=== PATIENT | male | born 1965 | race African-American/Black ===

== ENCOUNTER 2017-11-11 22:10 | Emergency (ER) | payer OTHER, MEDICAID ==
[~2017-11-11] VITALS: Ht 170.2 cm; Wt 81.0 kg
[2017-11-11 22:16] VITALS: BP 121/76
== END 2017-11-12 00:30 | disposition left against medical advice (07) ==
LOC: ER 22:10
DX: R42 Dizziness and giddiness (principal); Z53.21 Procedure and treatment not carried out due to patient leaving prior to being seen by health care provider

== ENCOUNTER 2017-11-12 07:58 | Emergency (ER) | payer OTHER, MEDICAID ==
[~2017-11-12] VITALS: Ht 170.2 cm; Wt 81.0 kg
[2017-11-12 10:55] VITALS: BP 134/89
== END 2017-11-12 11:09 | disposition home or self-care (01) ==
LOC: ER 08:18
DX: S00.93XA Contusion of unspecified part of head, initial encounter (principal); Z88.0 Allergy status to penicillin; Z88.2 Allergy status to sulfonamides; W01.198A Fall on same level from slipping, tripping and stumbling with subsequent striking against other object, initial encounter; Y93.E1 Activity, personal bathing and showering; Y92.89 Other specified places as the place of occurrence of the external cause; Y99.8 Other external cause status
CPT/HCPCS: 99283